=== PATIENT | female | born 1985 | race Caucasian/White ===

== ENCOUNTER 2017-09-09 05:36 | Inpatient (IN) | payer MEDICAID ==
[~2017-09-09] VITALS: Ht 157.5 cm; Wt 95.3 kg
[2017-09-09] MEDS ORDERED: DEXT 5%/LR + PITOCIN 20UNITS/L 1,000 ML IV SCH ×2 (06:23→14:12)
[2017-09-09] MEDS ORDERED: NALOXONE HCL 0.4 MG/ML 1ML VIAL IM PRN (06:30)
[2017-09-09] MEDS ORDERED: CARBOPROST TROMETHAMINE 250 MCG/ML AMPUL IM PRN (06:30)
[2017-09-09] MEDS ORDERED: METHYLERGONOVINE MALEATE 0.2 MG/ML IM PRN (06:30)
[2017-09-09 06:50] LABS: BASOPHILS % 1.5 % (0.0-2.0); EOSINOPHILS % 1.1 % (0.0-5.0); HEMOGLOBIN. 10.9 g/dL (12.0-16.0); LYMPHOCYTES % 13.4 % (20.0-50.0); MEAN CORPUSCULAR HEMOGLOBIN 27.1 pg (28.0-32.0); MEAN CORPUSCULAR VOLUME 82.3 fL (81.0-99.0); PLATELET 310 x1000/uL (130-400); RED BLOOD CELL COUNT 4.01 mill/uL (4.2-5.4)
[2017-09-09 06:53] LABS: CLARITY URINE CLOUDY (CLEAR); COLOR URINE YELLOW (YELLOW); KETONES URINE NEGATIVE (NEGATIVE); LEUKOCYTE ESTERASE URINE 2+ (NEGATIVE); NITRITE URINE NEGATIVE (NEGATIVE); OCCULT BLOOD URINE NEGATIVE (NEGATIVE); PROTEIN URINE NEGATIVE (NEGATIVE); SPECIFIC GRAVITY URINE 1.008 (1.005-1.030); UROBILINOGEN URINE 0.2 E.U./dL (0.2-1.0)
[2017-09-09] MEDS: LACTATED RINGERS 1,000 ML IV SCH (06:54)
[2017-09-09 06:58] LABS: INR 0.9; PARTIAL THROMBOPLASTIN TIME 26.8 sec (23.4-31.0); PROTHROMBIN TIME 9.4 sec (9.4-11.6)
[2017-09-09] MEDS ORDERED: MORPHINE SULFATE/PF 1MG/ML 10ML AMP ONE (07:42)
[2017-09-09] MEDS ORDERED: FENTANYL CITRATE/PF 50MCG/ML 2ML VIAL ONE (07:42)
[2017-09-09] MEDS ORDERED: PHENYLEPHRINE HCL 10 MG/ML 1ML (IV VIAL) IV ONE (07:42)
[2017-09-09 07:54] LABS: *AMPHETAMINES SCREEN URINE NEGATIVE (NEGATIVE); *BARBITURATES SCREEN URINE NEGATIVE (NEGATIVE); *BENZODIAZEPINES SCREEN URINE NEGATIVE (NEGATIVE); *COCAINE SCREEN URINE NEGATIVE (NEGATIVE); METHADONE URINE SCREEN NEGATIVE (NEGATIVE)
[2017-09-09 07:57] LABS: CANNABINOID URINE SCREEN NEGATIVE (NEGATIVE); OPIATES URINE SCREEN NEGATIVE (NEGATIVE); PHENCYCLIDINE URINE SCREEN NEGATIVE (NEGATIVE)
[2017-09-09] MEDS ORDERED: CEFAZOLIN SODIUM 1000MG/VIAL ONE (08:02)
[2017-09-09] MEDS ORDERED: GLYCOPYRROLATE 0.2 MG/ML 2ML VIAL ONE (09:00)
[2017-09-09] MEDS ORDERED: NALOXONE HCL 0.4 MG/ML 1ML VIAL IV PRN (09:15)
[2017-09-09] MEDS ORDERED: ONDANSETRON HCL 4MG/2ML VIAL IV PRN ×2 (09:15→14:15)
[2017-09-09] MEDS: KETOROLAC 30MG/ML VIAL IV SCH ×3 (10:00→23:44)
[2017-09-09] MEDS: DIPHENHYDRAMINE 50MG/ML VIAL IV PRN ×2 (10:15→23:45)
[2017-09-09 10:53] LABS: RUBELLA IGG 116.3 IU/mL (4.99-10)
[2017-09-09 10:54] LABS: HEPATITIS B SURFACE ANTIGEN NEGATIVE
[2017-09-09 11:35] VITALS: BP 98/54
[2017-09-09 12:30] VITALS: BP 100/60
[2017-09-09] MEDS ORDERED: RHO(D) IMMUNE GLOBULIN 300 MCG/SYR IM PRN (14:15)
[2017-09-09] MEDS ORDERED: HYDROCODONE/ACETAMINOPHEN 5/325MG TABLET PO PRN (14:15)
[2017-09-09] MEDS ORDERED: IBUPROFEN 400MG TABLET PO PRN (14:15)
[2017-09-09] MEDS ORDERED: LANOLIN OINT 0.25 GM TUBE TOP PRN (14:15)
[2017-09-09] MEDS ORDERED: IBUPROFEN 800MG TABLET PO PRN (14:15)
[2017-09-09 22:11] VITALS: BP 105/61
[2017-09-09] MEDS: DOCUSATE SODIUM 100MG CAPSULE PO SCH (23:43)
[2017-09-10] MEDS: LACTATED RINGERS 1,000 ML IV SCH (02:50)
[2017-09-10 06:05] VITALS: BP 108/64
[2017-09-10] MEDS: KETOROLAC 30MG/ML VIAL IV SCH (06:18)
[2017-09-10] MEDS ORDERED: KETOROLAC 30MG/ML VIAL ONE (06:23)
[2017-09-10 07:55] VITALS: BP 92/48
[2017-09-10 07:56] LABS: BASOPHILS % 0.6 % (0.0-2.0); EOSINOPHILS % 0.7 % (0.0-5.0); HEMATOCRIT. 24.9 % (36.0-48.0); HEMOGLOBIN. 8.2 g/dL (12.0-16.0); LYMPHOCYTES % 11.6 % (20.0-50.0); MEAN CORPUSCULAR HEMOGLOBIN 27.4 pg (28.0-32.0); MEAN CORPUSCULAR VOLUME 82.9 fL (81.0-99.0); MEAN PLATELET VOLUME 7.7 fl (7.4-10.4); MONOCYTES % 4.6 % (2.0-8.0); NEUTROPHILS % 82.5 % (40.0-76.0); PLATELET 224 x1000/uL (130-400); RED BLOOD CELL COUNT 3.01 mill/uL (4.2-5.4); RED CELL DISTRIBUTION WIDTH 13.8 % (11.6-14.6)
[2017-09-10] MEDS: PRENATAL VIT/FE FUMARATE/FA TABLET PO SCH (09:18)
[2017-09-10] MEDS ORDERED: IBUPROFEN 400MG TABLET PO PRN (10:00)
[2017-09-10 16:20] VITALS: BP 120/68
[2017-09-10] MEDS ORDERED: METRONIDAZOLE 500MG TABLET PO NR (17:08)
[2017-09-10 19:50] VITALS: BP 117/71
[2017-09-10] MEDS: HYDROCODONE/ACETAMINOPHEN 5/325MG TABLET PO PRN (19:52)
[2017-09-10] MEDS: DOCUSATE SODIUM 100MG CAPSULE PO SCH (21:17)
[2017-09-10 23:50] VITALS: BP 106/59
[2017-09-11] MEDS: HYDROCODONE/ACETAMINOPHEN 5/325MG TABLET PO PRN ×2 (05:44→16:11)
[2017-09-11 07:50] VITALS: BP 115/62
[2017-09-11] MEDS ORDERED: METRONIDAZOLE 500MG TABLET PO ONE (08:45)
[2017-09-11] MEDS: PRENATAL VIT/FE FUMARATE/FA TABLET PO SCH (09:13)
[2017-09-11] MEDS ORDERED: METRONIDAZOLE 500MG TABLET PO SCH (11:45)
[2017-09-11] MEDS ORDERED: METRONIDAZOLE 50MG/ML 1ML ORAL SYR(NEO) PO ONE (11:45)
[2017-09-11 16:16] VITALS: BP 126/84
[2017-09-11] MEDS: DOCUSATE SODIUM 100MG CAPSULE PO SCH (21:22)
[2017-09-11] MEDS: IBUPROFEN 800MG TABLET PO PRN (21:23)
[2017-09-11 22:33] VITALS: BP 136/86
[2017-09-12 00:29] VITALS: BP 104/65
[2017-09-12] MEDS: HYDROCODONE/ACETAMINOPHEN 5/325MG TABLET PO PRN (02:27)
[2017-09-12 07:58] VITALS: BP 118/58
[2017-09-12] MEDS: IBUPROFEN 800MG TABLET PO PRN (08:58)
[2017-09-12] MEDS: PRENATAL VIT/FE FUMARATE/FA TABLET PO SCH (08:58)
== END 2017-09-12 12:00 | disposition home or self-care (01) | DRG 540 ==
LOC: L&D 05:36 → OBSVTOIN 05:36 → 7EST PP/OB 11:26
PROVIDERS: ADMIT Obstetrics & Gynecology; ATTEND Obstetrics & Gynecology
PROC: 10D00Z1 Extraction of Products of Conception, Low, Open Approach (ICD-10-PCS; principal; 2017-09-10)
DX: O69.81X0 Labor and delivery complicated by cord around neck, without compression, not applicable or unspecified (principal); D62 Acute posthemorrhagic anemia; O99.02 Anemia complicating childbirth; O34.211 Maternal care for low transverse scar from previous cesarean delivery; Z37.0 Single live birth; Z3A.39 39 weeks gestation of pregnancy
CPT/HCPCS: 36415; 80305; 81003; 85025; 85610; 85730; 86592; 86703; 86762; 86850; 86900; 87340; 88307; G0378; J0690; J1200; J1885; J2274; J2370; J2590; J3010; J3490; J7120; A4315

== ENCOUNTER 2022-04-12 07:48 | Observation (INO) | payer MEDICAID ==
[~2022-04-12] VITALS: Ht 160 cm; Wt 108.4 kg
[2022-04-12] MEDS ORDERED: LABE200T9 MT (08:17)
[2022-04-12] MEDS ORDERED: LABE200T9 PO (08:17)
[2022-04-12] MEDS ORDERED: PREN-99 MT (09:04)
[2022-04-12 09:57] LABS: BASOPHILS % 0.6 % (0.0-2.0); EOSINOPHILS % 0.8 % (0.0-5.0); HEMATOCRIT. 38.2 % (36.0-48.0); HEMOGLOBIN. 12.6 g/dL (12.0-16.0); LYMPHOCYTES % 16.5 % (20.0-50.0); MEAN CORPUSCULAR HEMOGLOBIN 26.6 pg (28.0-32.0); MEAN CORPUSCULAR VOLUME 80.7 fL (81.0-99.0); MEAN PLATELET VOLUME 8.2 fl (7.4-10.4); MONOCYTES % 4.8 % (2.0-8.0); NEUTROPHILS % 77.3 % (40.0-76.0); PLATELET 273 x1000/uL (130-400); RED BLOOD CELL COUNT 4.73 mill/uL (4.2-5.4); RED CELL DISTRIBUTION WIDTH 15.2 % (11.6-14.6)
[2022-04-12 10:03] LABS: CHLORIDE 105 mEq/L (98-107)
[2022-04-12] MEDS ORDERED: ACETAMINOPHEN 325MG TABLET PO NR (11:15)
[2022-04-12 11:22] LABS: CLARITY URINE CLEAR (CLEAR); COLOR URINE YELLOW (YELLOW); KETONES URINE NEGATIVE (NEGATIVE); LEUKOCYTE ESTERASE URINE NEGATIVE (NEGATIVE); NITRITE URINE NEGATIVE (NEGATIVE); OCCULT BLOOD URINE NEGATIVE (NEGATIVE); PH URINE 6.5 (4.5-8.0); PROTEIN URINE 3+ (NEGATIVE)
[2022-04-12 11:45] LABS: D-DIMER 0.75 mg/L FEU (<0.50); INR 0.9; PARTIAL THROMBOPLASTIN TIME 29.2 sec (23.4-31.0); PROTHROMBIN TIME 10.2 sec (9.6-11.0)
[2022-04-12] MEDS ORDERED: BETAMETHASONE ACET/BETAMET 30 MG/5 ML VIAL IM SCH (12:15)
== END 2022-04-12 12:45 | disposition home or self-care (01) ==
LOC: 8 EST LDRP 07:48
PROVIDERS: ADMIT Obstetrics & Gynecology; ATTEND Obstetrics & Gynecology
DX: O26.893 Other specified pregnancy related conditions, third trimester (principal); R51.9 Headache, unspecified; R03.0 Elevated blood-pressure reading, without diagnosis of hypertension; Z3A.34 34 weeks gestation of pregnancy; Z98.891 History of uterine scar from previous surgery; Z79.899 Other long term (current) drug therapy
CPT/HCPCS: 36415; 59025; 76815; 76818; 80053; 81003; 84550; 85025; 85379; 85384; 85610; 85730; G0378; J0702; 96372; 99281

== ENCOUNTER 2022-04-13 15:41 | Observation (INO) | payer MEDICAID ==
[~2022-04-13] VITALS: Ht 157.5 cm; Wt 119.7 kg
[~2022-04-13 15:41] MED LIST: LABE200T9 PO; PREN-99 MT
[2022-04-13] MEDS ORDERED: BETAMETHASONE ACET/BETAMET 30 MG/5 ML VIAL IM NR (16:00)
== END 2022-04-13 17:00 | disposition home or self-care (01) ==
LOC: 8 EST LDRP 15:41
PROVIDERS: ADMIT Obstetrics & Gynecology; ATTEND Obstetrics & Gynecology
DX: O36.8930 Maternal care for other specified fetal problems, third trimester, not applicable or unspecified (principal); O26.893 Other specified pregnancy related conditions, third trimester; R03.0 Elevated blood-pressure reading, without diagnosis of hypertension; Z3A.34 34 weeks gestation of pregnancy
CPT/HCPCS: 59025; 82575; 84156; 96372; J0702; 99281; G0378

== ENCOUNTER 2022-04-22 15:04 | Inpatient (IN) | payer MEDICAID ==
[~2022-04-22] VITALS: Ht 154.9 cm; Wt 108.9 kg
[2022-04-22] MEDS ORDERED: LACTATED RINGERS 1,000 ML IV SCH (16:00)
[2022-04-22] MEDS ORDERED: LABETALOL HCL 5MG/ML VIAL 20ML IV PRN ×3 (16:00)
[2022-04-22] MEDS ORDERED: MAGNESIUM 20 G PREMIX (L & D) 500 ML IV SCH ×2 (16:15→20:00)
[2022-04-22 16:18] LABS: CLARITY URINE CLOUDY (CLEAR); COLOR URINE YELLOW (YELLOW)
[2022-04-22 16:19] LABS: KETONES URINE NEGATIVE (NEGATIVE)
[2022-04-22 16:20] LABS: LEUKOCYTE ESTERASE URINE 1+ (NEGATIVE); NITRITE URINE NEGATIVE (NEGATIVE); OCCULT BLOOD URINE 1+ (NEGATIVE); PROTEIN URINE 3+ (NEGATIVE); UROBILINOGEN URINE 0.2 E.U./dL (0.2-1.0)
[2022-04-22 16:20] LABS: BASOPHILS % 0.7 % (0.0-2.0); EOSINOPHILS % 0.1 % (0.0-5.0); HEMATOCRIT. 39.4 % (36.0-48.0); HEMOGLOBIN. 12.9 g/dL (12.0-16.0); LYMPHOCYTES % 17.4 % (20.0-50.0); MEAN CORPUSCULAR HEMOGLOBIN 26.5 pg (28.0-32.0); MEAN CORPUSCULAR VOLUME 80.8 fL (81.0-99.0); MEAN PLATELET VOLUME 7.8 fl (7.4-10.4); MONOCYTES % 4.9 % (2.0-8.0); NEUTROPHILS % 76.9 % (40.0-76.0); PLATELET 271 x1000/uL (130-400); RED BLOOD CELL COUNT 4.88 mill/uL (4.2-5.4); RED CELL DISTRIBUTION WIDTH 15.3 % (11.6-14.6)
[2022-04-22 16:28] LABS: *AMPHETAMINES SCREEN URINE NEGATIVE (NEGATIVE); *BARBITURATES SCREEN URINE NEGATIVE (NEGATIVE); *BENZODIAZEPINES SCREEN URINE NEGATIVE (NEGATIVE); *COCAINE SCREEN URINE NEGATIVE (NEGATIVE); CANNABINOID URINE SCREEN NEGATIVE (NEGATIVE); METHADONE URINE SCREEN NEGATIVE (NEGATIVE); OPIATES URINE SCREEN NEGATIVE (NEGATIVE); PHENCYCLIDINE URINE SCREEN NEGATIVE (NEGATIVE)
[2022-04-22 16:34] LABS: CHLORIDE 104 mEq/L (98-107)
[2022-04-22 16:36] LABS: D-DIMER 0.65 mg/L FEU (<0.50); INR 0.9; PARTIAL THROMBOPLASTIN TIME 27.5 sec (23.4-31.0); PROTHROMBIN TIME 9.6 sec (9.6-11.0)
[2022-04-22] MEDS ORDERED: MORPHINE SULFATE/PF 1MG/ML 10ML AMP ONE (16:55)
[2022-04-22] MEDS ORDERED: ONDANSETRON HCL 4MG/2ML INJ ONE (17:03)
[2022-04-22] MEDS ORDERED: DEXAMETHASONE 4MG/ML 1ML VIAL ONE (17:03)
[2022-04-22] MEDS ORDERED: CEFAZOLIN SODIUM 1000MG/VIAL ONE (17:03)
[2022-04-22] MEDS ORDERED: OXYTOCIN 10 UNITS/ML 1ML ONE (17:03)
[2022-04-22] MEDS ORDERED: KETOROLAC 60MG/2ML VIAL IM ONE (17:04)
[2022-04-22] MEDS ORDERED: EPHEDRINE SULFATE 50MG/ML VIAL ONE (19:22)
[2022-04-22] MEDS ORDERED: MORPHINE SULFATE 4 MG/ML CPJ (NOT FOR IM USE) IV PRN (19:45)
[2022-04-22] MEDS ORDERED: FENTANYL CITRATE/PF 50MCG/ML 2ML VIAL IV PRN (19:45)
[2022-04-22] MEDS ORDERED: NALOXONE HCL 0.4 MG/ML 1ML VIAL IV PRN (19:45)
[2022-04-22] MEDS ORDERED: HYDROCODONE/ACETAMINOPHEN 5/325MG TABLET PO PRN (20:00)
[2022-04-22] MEDS ORDERED: ONDANSETRON HCL 4MG/2ML INJ IV PRN (20:00)
[2022-04-22] MEDS ORDERED: BISACODYL 10MG SUPP PR PRN (20:00)
[2022-04-22] MEDS ORDERED: DIPHENHYDRAMINE 25MG CAPSULE PO PRN (20:00)
[2022-04-22] MEDS ORDERED: LANOLIN OINT 7GM TUBE TOP PRN (20:00)
[2022-04-22] MEDS ORDERED: RHO(D) IMMUNE GLOBULIN 300 MCG/SYR IM PRN (20:00)
[2022-04-22] MEDS ORDERED: IBUPROFEN 400MG TABLET PO PRN (20:00)
[2022-04-22] MEDS ORDERED: DOCUSATE SODIUM 100MG CAPSULE PO SCH (21:00)
[2022-04-22] MEDS ORDERED: BUTORPHANOL TARTRATE 2 MG/ML VIAL IV PRN (22:30)
[2022-04-22] MEDS: LABETALOL HCL 200MG TABLET PO SCH (23:45)
[2022-04-23] VITALS (7 sets, daily range): BP systolic 110–121; BP diastolic 59–73
[2022-04-23] MEDS: KETOROLAC 30MG/ML VIAL IV PRN ×2 (02:38→18:03)
[2022-04-23] MEDS: OXYTOCIN 30 UNITS/500ML NS PMX 500 ML IV SCH ×2 (05:10→16:37)
[2022-04-23 06:50] LABS: BASOPHILS % 0.2 % (0.0-2.0); HEMATOCRIT. 37.7 % (36.0-48.0); HEMOGLOBIN. 12.1 g/dL (12.0-16.0); LYMPHOCYTES % 9.7 % (20.0-50.0); MEAN CORPUSCULAR HEMOGLOBIN 26.1 pg (28.0-32.0); MEAN CORPUSCULAR VOLUME 81.4 fL (81.0-99.0); MEAN PLATELET VOLUME 7.9 fl (7.4-10.4); MONOCYTES % 2.4 % (2.0-8.0); NEUTROPHILS % 87.7 % (40.0-76.0); PLATELET 232 x1000/uL (130-400); RED BLOOD CELL COUNT 4.64 mill/uL (4.2-5.4); RED CELL DISTRIBUTION WIDTH 15.3 % (11.6-14.6)
[2022-04-23] MEDS: LABETALOL HCL 200MG TABLET PO SCH ×3 (09:06→17:00)
[2022-04-23] MEDS: PRENATAL VIT/FE FUMARATE/FA TABLET PO SCH (09:06)
[2022-04-24 01:00] VITALS: BP 127/70
[2022-04-24] MEDS: HYDROCODONE/ACETAMINOPHEN 5/325MG TABLET PO PRN ×3 (01:05→20:07)
[2022-04-24 05:45] VITALS: BP 121/74
[2022-04-24 06:43] LABS: BASOPHILS % 0.3 % (0.0-2.0); EOSINOPHILS % 0.1 % (0.0-5.0); HEMATOCRIT. 33.2 % (36.0-48.0); HEMOGLOBIN. 10.8 g/dL (12.0-16.0); LYMPHOCYTES % 18.1 % (20.0-50.0); MEAN CORPUSCULAR HEMOGLOBIN 26.5 pg (28.0-32.0); MEAN CORPUSCULAR VOLUME 81.5 fL (81.0-99.0); MEAN PLATELET VOLUME 7.8 fl (7.4-10.4); MONOCYTES % 5.1 % (2.0-8.0); NEUTROPHILS % 76.4 % (40.0-76.0); PLATELET 226 x1000/uL (130-400); RED BLOOD CELL COUNT 4.07 mill/uL (4.2-5.4); RED CELL DISTRIBUTION WIDTH 15.5 % (11.6-14.6)
[2022-04-24 08:00] VITALS: BP 137/76
[2022-04-24] MEDS: PRENATAL VIT/FE FUMARATE/FA TABLET PO SCH (09:29)
[2022-04-24] MEDS: LABETALOL HCL 200MG TABLET PO SCH (10:36)
[2022-04-24 12:00] VITALS: BP 147/77
[2022-04-24 14:54] LABS: HEPATITIS B SURFACE ANTIGEN NEGATIVE
[2022-04-24 15:52] VITALS: BP 110/62
[2022-04-24 20:00] VITALS: BP 128/69
[2022-04-25] VITALS (8 sets, daily range): BP systolic 107–186; BP diastolic 59–96
[2022-04-25] MEDS: HYDROCODONE/ACETAMINOPHEN 5/325MG TABLET PO PRN ×4 (00:01→23:21)
[2022-04-25] MEDS: LABETALOL HCL 200MG TABLET PO SCH ×2 (10:08→17:01)
[2022-04-25] MEDS ORDERED: CAFFEINE 200MG TABLET PO PRN (11:00)
[2022-04-25] MEDS ORDERED: NALOXONE HCL 0.4MG/ML VIAL IV PRN (11:00)
[2022-04-25] MEDS ORDERED: NIFEDIPINE 10MG CAPSULE PO NR (15:15)
[2022-04-26 05:22] VITALS: BP 136/61
[2022-04-26 08:30] VITALS: BP 119/74
[2022-04-26] MEDS: PRENATAL VIT/FE FUMARATE/FA TABLET PO SCH (08:35)
[2022-04-26] MEDS: HYDROCODONE/ACETAMINOPHEN 5/325MG TABLET PO PRN ×3 (08:36→19:54)
[2022-04-26 12:00] VITALS: BP 141/84
[2022-04-26] MEDS: LABETALOL HCL 200MG TABLET PO SCH ×2 (16:17→22:46)
[2022-04-26 17:12] VITALS: BP 138/76
[2022-04-26 19:30] VITALS: BP 127/76
[2022-04-26 22:45] VITALS: BP 131/62
[2022-04-27 04:00] VITALS: BP 114/62
[2022-04-27] MEDS: HYDROCODONE/ACETAMINOPHEN 5/325MG TABLET PO PRN ×2 (04:13→12:07)
[2022-04-27 07:45] VITALS: BP 136/78
[2022-04-27] MEDS: PRENATAL VIT/FE FUMARATE/FA TABLET PO SCH (08:46)
[2022-04-27] MEDS: LABETALOL HCL 200MG TABLET PO SCH (08:47)
[2022-04-27] MEDS ORDERED: IBUP-2030 MT (09:52)
[2022-04-27] MEDS ORDERED: LABE100T9 PO (09:52)
[2022-04-27 12:07] VITALS: BP 114/62
== END 2022-04-27 13:20 | disposition home or self-care (01) | DRG 539 ==
LOC: OBSVTOIN 15:04 → 8 EST LDRP 15:04 → 8EST 04-23 01:38
PROVIDERS: ADMIT Obstetrics & Gynecology; ATTEND Obstetrics & Gynecology
PROC: 10D00Z1 Extraction of Products of Conception, Low, Open Approach (ICD-10-PCS; principal; 2022-04-22)
PROC: 0UB70ZZ Excision of Bilateral Fallopian Tubes, Open Approach (ICD-10-PCS; 2022-04-22)
DX: O13.4 Gestational [pregnancy-induced] hypertension without significant proteinuria, complicating childbirth (principal); O60.14X0 Preterm labor third trimester with preterm delivery third trimester, not applicable or unspecified; O41.03X0 Oligohydramnios, third trimester, not applicable or unspecified; O99.13 Other diseases of the blood and blood-forming organs and certain disorders involving the immune mechanism complicating the puerperium; O99.214 Obesity complicating childbirth; E66.01 Morbid (severe) obesity due to excess calories; Z20.822 Contact with and (suspected) exposure to COVID-19; Z3A.35 35 weeks gestation of pregnancy; Z37.0 Single live birth; O90.81 Anemia of the puerperium; O89.4 Spinal and epidural anesthesia-induced headache during the puerperium; D72.829 Elevated white blood cell count, unspecified; Z30.2 Encounter for sterilization
CPT/HCPCS: 36415; 80053; 80305; 81003; 83735; 84550; 85025; 85379; 85384; 86592; 86703; 86762; 86850; 86900; 86920; 87340; 87426; 88302; 88307; 99281; C1893; G0378; J0595; J0690; J1100; J1885; J2274; J2405; J3475; J3490; J7120; A4315; J2590

== ENCOUNTER 2022-11-19 01:38 | Emergency (ER) | payer MEDICAID ==
[~2022-11-19] VITALS: Ht 157.5 cm; Wt 106.0 kg
[~2022-11-19 01:38] MED LIST changes: +IBUP-2030 MT; +LABE100T9 PO; -LABE200T9 PO
[2022-11-19 01:46] VITALS: BP 167/112
[2022-11-19 03:07] LABS: BASOPHILS % 0.5 % (0.0-2.0); EOSINOPHILS % 5.3 % (0.0-5.0); HEMATOCRIT. 35.1 % (36.0-48.0); HEMOGLOBIN. 11.7 g/dL (12.0-16.0); LYMPHOCYTES % 11.2 % (20.0-50.0); MEAN CORPUSCULAR HEMOGLOBIN 26.3 pg (28.0-32.0); MEAN CORPUSCULAR VOLUME 79.2 fL (81.0-99.0); MEAN PLATELET VOLUME 7.4 fl (7.4-10.4); PLATELET 390 x1000/uL (130-400); RED BLOOD CELL COUNT 4.42 mill/uL (4.2-5.4); RED CELL DISTRIBUTION WIDTH 14.3 % (11.6-14.6)
[2022-11-19 03:14] LABS: CHLORIDE 106 mEq/L (98-107)
[2022-11-19] MEDS ORDERED: ACET-2708 PO (06:49)
[2022-11-19] MEDS ORDERED: D-ME473S50 PO (06:49)
[2022-11-19] MEDS ORDERED: ALBU18HF2 IH (06:49)
== END 2022-11-19 07:10 | disposition home or self-care (01) ==
LOC: ER 01:38
DX: J20.9 Acute bronchitis, unspecified (principal); I10 Essential (primary) hypertension; E11.9 Type 2 diabetes mellitus without complications; Z20.822 Contact with and (suspected) exposure to COVID-19; Z98.890 Other specified postprocedural states
CPT/HCPCS: 36415; 71045; 80053; 81025; 85025; 87426; 87804; 93005; 99285; C9803

== ENCOUNTER 2023-08-17 09:34 | Emergency (ER) | payer MEDICAID ==
[~2023-08-17] VITALS: Ht 167.6 cm; Wt 104.0 kg
[~2023-08-17 09:34] MED LIST changes: +ACET-2708 PO; +ALBU18HF2 IH; +D-ME473S50 PO
[2023-08-17 09:42] VITALS: O2SAT 98
[2023-08-17 11:01] LABS: BASOPHILS % 0.7 % (0.0-2.0); DIFFERENTIAL COMMENT 0; EOSINOPHILS % 8.5 % (0.0-5.0); HEMOGLOBIN. 11.5 g/dL (12.0-16.0); LYMPHOCYTES % 15.4 % (20.0-50.0); MEAN CORPUSCULAR HEMOGLOBIN 25.9 pg (28.0-32.0); MEAN CORPUSCULAR HGB CONC 32.9 g/dL (31.0-37.0); MEAN CORPUSCULAR VOLUME 78.7 fL (81.0-99.0); MEAN PLATELET VOLUME 7.6 fl (7.4-10.4); MONOCYTES % 4.5 % (2.0-8.0); NEUTROPHILS % 70.9 % (40.0-76.0); PLATELET 336 x1000/uL (130-400); RED BLOOD CELL COUNT 4.45 mill/uL (4.2-5.4); RED CELL DISTRIBUTION WIDTH 15.5 % (11.6-14.6); WHITE BLOOD COUNT 10.5 x1000/uL (4.5-11.0)
[2023-08-17 11:16] LABS: HCG SCREEN NEGATIVE
[2023-08-17 11:20] LABS: ALANINE AMINOTRANSFERASE 29 IU/L (10-49); ALBUMIN 4.1 g/dL (3.2-4.8); ASPARTATE AMINOTRANSFERASE 25 IU/L (<34); BILIRUBIN TOTAL 0.6 mg/dL (0.1-1.0); CALCIUM 8.6 mg/dL (8.7-10.4); CARBON DIOXIDE 25 mEq/L (21-32); CHLORIDE 104 mEq/L (98-107); CREATININE 0.5 mg/dL (0.6-1.0); GLUCOSE 118 mg/dL (70-105); POTASSIUM 3.9 mEq/L (3.5-5.1); PROTEIN TOTAL 8.3 g/dL (6.0-8.3); SODIUM 136 mEq/L (136-145); TROPONIN I HIGH SENSITIVITY < 4 ng/L (3.0-34); UREA NITROGEN BLOOD 9 mg/dL (9-23)
[2023-08-17] MEDS: ONDANSETRON 4MG ODT PO ONE (13:15)
[2023-08-17] MEDS: DEXAMETHASONE 10 MG/ML VIAL PO ONE (13:15)
[2023-08-17 13:18] LABS: CLARITY URINE CLOUDY (CLEAR); COLOR URINE YELLOW (YELLOW); GLUCOSE URINE NEGATIVE (NEGATIVE); KETONES URINE TRACE (NEGATIVE); LEUKOCYTE ESTERASE URINE NEGATIVE (NEGATIVE); NITRITE URINE NEGATIVE (NEGATIVE); OCCULT BLOOD URINE NEGATIVE (NEGATIVE); PROTEIN URINE 3+ (NEGATIVE); SPECIFIC GRAVITY URINE 1.024 (1.005-1.030)
[2023-08-17 14:06] LABS: SQUAMOUS EPITHELIAL CELL URINE 2+ /lpf (RARE/1+)
[2023-08-17 14:08] LABS: BACTERIA URINE TRACE; RBC URINE 0-2 /hpf (0-2)
[2023-08-17] MEDS ORDERED: CLOT15CR5 TP (14:30)
[2023-08-17] MEDS ORDERED: AMOX1TAB16 MT (14:30)
[2023-08-17] MEDS ORDERED: IBUP-2029 MT (14:30)
[2023-08-17] MEDS ORDERED: ONDA4TAB11 PO (14:30)
[2023-08-17 15:26] VITALS: BP 154/96; PULSE 79; RESP 17; TEMP 98.2
== END 2023-08-17 16:00 | disposition home or self-care (01) ==
LOC: ER 09:34
DX: J02.9 Acute pharyngitis, unspecified (principal); N39.0 Urinary tract infection, site not specified; L30.4 Erythema intertrigo; E11.9 Type 2 diabetes mellitus without complications; I10 Essential (primary) hypertension; Z98.890 Other specified postprocedural states
CPT/HCPCS: 99285; 71045; 80053; 81003; 84703; 83880; 85025; 84484; 36415; 93005; Q0162; J1100